=== PATIENT | male | born 1955 | race Caucasian/White ===

== ENCOUNTER 2018-10-03 13:11 | Emergency (ER) | payer SELFPAY ==
[~2018-10-03] VITALS: Ht 162.6 cm; Wt 70.7 kg
[~2018-10-03 13:11] MED LIST: ASPI-496 PO
[2018-10-03] MEDS ORDERED: SODIUM CHLORIDE FLUSH 10ML SYR IVF ONE (13:30)
[2018-10-03] MEDS ORDERED: ASPIRIN 81 MG TABLET CHEW PO ONE (13:30)
[2018-10-03 13:35] LABS: BASOPHILS # (AUTO) 0.02 x10^3/uL (0-0.1); BASOPHILS % (AUTO) 0 % (0-1); EOSINOPHILS # (AUTO) 0.03 x10^3/uL (0-0.4); EOSINOPHILS % (AUTO) 0 % (1-7); LYMPHOCYTES # (AUTO) 1.21 x10^3/uL (1-3.4); LYMPHOCYTES % (AUTO) 11 % (22-44); MD NO; MEAN CORPUSCULAR HEMOGLOBIN 32.2 pg (27.5-34.5); MEAN CORPUSCULAR HGB CONC 33.2 g/dL (33.2-36.2); MEAN CORPUSCULAR VOLUME 96.9 fL (81-97); MEAN PLATELET VOLUME 7.7 fL (7.4-10.4); MONOCYTES % (AUTO) 3 % (2-9); NEUTROPHILS # (AUTO) 9.94 x10^3/uL (1.8-6.8); NEUTROPHILS % (AUTO) 87 % (42-75); PLATELET COUNT 260 x10^3/uL (130-400); RED BLOOD COUNT 4.68 x10^6/uL (4.38-5.82); RED CELL DISTRIBUTION WIDTH 13.6 % (9.4-14.8)
[2018-10-03 13:44] LABS: ALANINE AMINOTRANSFERASE 24 U/L (12-78); ALBUMIN 4.1 g/dL (3.4-5.0); ANION GAP 5 mmol/L (5-15); CALCIUM 9.1 mg/dL (8.5-10.1); CHLORIDE 106 mmol/L (98-107); CREATININE 1.12 mg/dL (0.7-1.3)
[2018-10-03 13:49] LABS: ALKALINE PHOSPHATASE 51 U/L (45-117); BILIRUBIN,TOTAL 0.6 mg/dL (0.2-1.0); TOTAL PROTEIN 7.2 g/dL (6.4-8.2); TROPONIN I < 0.015 ng/mL (0.000-0.045)
--- NOTE | 2018-10-03 13:50 | NUR ---
PATIENT ROOMED FROM TRIAGE [facility] UTILIZED AFTER COFFEE AND TEA THIS MORNING HAVING LEFT CP BURNING SENSATION AND PALPATIONS. NO N/V, SWEATING OR DIZZINESS ASSOCIATED VITALS STABLE ON AIR CONDITIONING ENGINEER BILATERAL LEGS NOTED TO BE QUITE SWOLLEN (+3) PATIENT REPORTS CHRNONIC PROBLEM
[2018-10-03] MEDS ORDERED: ASPIRIN 81 MG TABLET CHEW ONE (14:51)
[2018-10-03 14:59] VITALS: BP 117/76
--- NOTE | 2018-10-03 15:09 | NUR ---
Patient given discharge instructions and they have confirmed that they understand the instructions. Patient ambulatory with steady gait. Pt left with all personal belongings, d/c paperwork, and prescription. Pt encouraged to return to ED if symptoms worsen or change.
== END 2018-10-03 15:12 | disposition home or self-care (01) ==
LOC: ED 15:06
DX: R07.89 Other chest pain (principal); K21.9 Gastro-esophageal reflux disease without esophagitis
CPT/HCPCS: 36415; 71045; 80053; 84484; 85025; 93005; 99284

== ENCOUNTER → 2019-07-03 | Outpatient (CLI) | payer SELFPAY | END | disposition home or self-care (01) | LOC: RAD 16:28 | PROVIDERS: ATTEND Nurse Practitioner Family | DX: M79.661 Pain in right lower leg (principal); R60.0 Localized edema ==

== ENCOUNTER 2019-07-17 21:50 | Emergency (ER) | payer SELFPAY ==
[~2019-07-17] VITALS: Ht 165.1 cm; Wt 75.5 kg
[2019-07-17 21:56] VITALS: BP 127/81
== END 2019-07-17 23:01 | disposition home or self-care (01) ==
LOC: ED 22:45
DX: I83.212 Varicose veins of right lower extremity with both ulcer of calf and inflammation (principal); L97.218 Non-pressure chronic ulcer of right calf with other specified severity
CPT/HCPCS: 99281; 99282